=== PATIENT | male | born 1970 | race Two or more races ===

== ENCOUNTER 2024-10-11 15:34 | Emergency (ER) | payer OTHER ==
[~2024-10-11] VITALS: Ht 162.6 cm; Wt 106.6 kg
[2024-10-11] MEDS ORDERED: KETOROLAC TROMETHAMINE 60 MG VIAL IM ONE (18:00)
[2024-10-11] MEDS ORDERED: DEXAMETHASONE 4 MG TABLET PO ONE (18:00)
== END 2024-10-11 21:37 | disposition home or self-care (01) ==
LOC: ER 15:36
DX: S82.121A Displaced fracture of lateral condyle of right tibia, initial encounter for closed fracture (principal); Y93.39 Activity, other involving climbing, rappelling and jumping off; Y93.89 Activity, other specified; Y92.017 Garden or yard in single-family (private) house as the place of occurrence of the external cause; Y99.9 Unspecified external cause status; Z91.013 Allergy to seafood

== ENCOUNTER 2024-10-24 05:25 | Day surgery (SDC) | payer OTHER ==
[2024-10-19 11:11] LABS: HEMATOCRIT 43.3 % (39.0-48.0); MEAN CELL VOLUME 87.8 fL (80.0-100.00); MEAN CORPUSCULAR HEMOGLOBIN 30.5 pg (27.00-32.0); MEAN CORPUSCULAR HGB CONC 34.7 g/dl (32.0-36.0); PLATELET COUNT 295 K/uL (150-450); RED BLOOD COUNT 4.93 M/uL (4.00-6.00); RED CELL DISTRIBUTION WIDTH 13.3 % (11.5-14.5)
[2024-10-19 11:19] LABS: PH,URINE 5.5 (5.0-8.0); URINE APPEARANCE Clear; URINE BILIRRUBIN Negative (NEGATIVE); URINE BLOOD Negative; URINE COLOR Dark Yellow; URINE GLUCOSE Negative (NEGATIVE); URINE KETONE 15 (NEGATIVE); URINE LEUKOCYTE Small; URINE NITRATE Negative; URINE PROTEIN Trace (NEGATIVE)
[2024-10-19 11:23] LABS: URINE BACTERIA 30.5 uL (0.0-1933); URINE EPITHELIAL CELLS 18.8 uL (0.0-38.8); URINE RBC 4.7 uL (0.0-20.8); URINE WBC 75.9 uL (0.0-23.2)
[2024-10-19 11:35] VITALS: BP 162/82
[2024-10-19 11:41] LABS: INR 1.01; PARTIAL THROMBOPLASTIN TIME 26.8 SECONDS (22.0-34.0)
[2024-10-19 11:56] LABS: RH POSITIVE
[2024-10-19 11:58] LABS: BILIRUBIN TOTAL 1.24 mg/dL (0.3-1.2); CALCIUM 9.1 mg/dL (8.5-10.1); CHOL HDL RATIO 3.8 (0-5.0); CREATININE SERUM 1.21 mg/dL (0.70-1.30); GFR 62.49; POTASSIUM 3.96 mEq/L (3.5-5.1)
[~2024-10-24] VITALS: Ht 170.2 cm; Wt 106.6 kg
[2024-10-24] MEDS ORDERED: BUPIVACAINE HCL/MPF 0.5% 30ML VIAL ONE (07:05)
[2024-10-24] MEDS ORDERED: LIDOCAINE HCL 1%/EPINEPHRINE 20ML VIAL IJ ONE ×2 (07:06→08:45)
[2024-10-24] MEDS ORDERED: TRANEXAMIC ACID 100MG/1ML (1000MG) AMPUL IV ONE ×3 (07:57→08:45)
[2024-10-24] MEDS ORDERED: CEFAZOLIN SODIUM 1,000 MG VIAL IV ONE (08:45)
[2024-10-24] MEDS ORDERED: VANCOMYCIN HCL 1,000 MG VIAL IR ONE (08:45)
[2024-10-24] MEDS ORDERED: BUPIVACAINE HCL 30 ML VIAL IJ ONE (08:45)
[2024-10-24] MEDS ORDERED: ENALAPRILAT DIHYDRATE 1.25 MG/ML VIAL IV ONE (09:08)
[2024-10-24] MEDS ORDERED: ELIQUIS2.5 MG PO (10:05)
[2024-10-24] MEDS ORDERED: CEFADROXIL500 MG PO (10:05)
[2024-10-24] MEDS ORDERED: PERCOCET 5-3251 EACH PO (10:05)
[2024-10-24] MEDS ORDERED: NASAL MIST126 ML NASAL (10:05)
[2024-10-24] MEDS ORDERED: MORPHINE SULFATE 4 MG/ML VIAL IV ONE (11:30)
== END 2024-10-24 13:45 | disposition home or self-care (01) ==
LOC: O/R 05:25 → CIR.AMB 05:25 → SURG 05:25 → EDSTATUS 09:30 → O/R 13:45 → CIR.AMB 13:45
PROVIDERS: ATTEND Orthopaedic Surgery
DX: S82.121A Displaced fracture of lateral condyle of right tibia, initial encounter for closed fracture (principal); M25.561 Pain in right knee; M25.061 Hemarthrosis, right knee; S80.01XA Contusion of right knee, initial encounter